=== PATIENT | male | born 1975 ===

== ENCOUNTER 2016-07-31 18:45 | Observation (INO) | payer SELFPAY ==
--- NOTE | 2016-07-31 19:22 | ED PDOC ---
HPI: Chest Pain Time Seen by Provider: 07/31/16 19:13 Chief Complaint (Nursing): Chest Pain Chief Complaint (Provider): Chest Pain History Per: Patient History/Exam Limitations: no limitations Onset/Duration Of Symptoms: Hrs (x5), Intermittent Episodes Current Symptoms Are (Timing): Still Present Severity: Moderate Quality: Tightness Associated Symptoms: denies: Other (no cough) Additional Complaint(s): Servando Lawrence is a 41 year old male, with a past medical history inclusive of hypercholesterolemia, who presents to the ED on 07/31/16, accompanied by his daughter, for the evaluation of intermittent episodes of moderate, left-sided chest pain that he has experienced x5 hours; onset of which was as he was putting a nail into a floor at work. Pain, described as a tightness, is present in the ED and has been reportedly felt before with prior cases of pneumonia, though patient denies fever, chills, cough, shortness of breath, leg pain or swelling. Of note, patient's daughter reports that he has been experiencing chest pain more often of late (monthly), but that he has not gone for medical evaluation secondary to his lack of insurance. Pain today is described as similar to previous. Last visit to a doctor was as of 2 years ago. PMD: none Past Medical History Reviewed: Historical Data, Nursing Documentation, Vital Signs Vital Signs: Last Vital Signs Temp 97.9 F 08/01/16 12:31 Pulse 81 08/01/16 12:31 Resp 18 08/01/16 12:31 BP 109/69 08/01/16 12:31 Pulse Ox 95 08/01/16 12:31 - Medical History PMH: Hypercholesterolemia - Surgical History Surgical History: No Surg Hx - Family History Family History: States: Hypertension, Other (hypercholesterolemia (mother)) - Living Arrangements Living Arrangements: With Family - Social History Current smoker - smoking cessation education provided: No Alcohol: None Drugs: Denies - Immunization History Hx Tetanus Toxoid Vaccination: No Hx Influenza Vaccination: No Hx Pneumococcal Vaccination: No - Home Medications Home Medications: Ambulatory Orders Medication Instructions Recorded Aspirin [Adult Low Dose Aspirin EC] 81 mg PO DAILY #1 tablet. 08/01/16 - Allergies Allergies/Adverse Reactions: Allergies Allergy/AdvReac Type Severity Reaction Status Date / Time No Known Allergies Allergy Verified 07/31/16 18:54 Review of Systems Constitutional: Negative for: Fever, Chills Cardiovascular: Positive for: Chest Pain (left-sided, intermittent tightness). Negative for: Edema Respiratory: Negative for: Cough, Shortness of Breath Musculoskeletal: Negative for: Leg Pain Neurological: Positive for: Headache, Dizziness (occasional, none in ED) Physical Exam - Reviewed Nursing Documentation Reviewed: Yes Vital Signs Reviewed: Yes - Physical Exam Appears: Positive for: Non-toxic, In Acute Distress (mild painful distress) Head Exam: Positive for: ATRAUMATIC, NORMOCEPHALIC Skin: Positive for: Normal Color, Warm, Dry Eye Exam: Positive for: Normal appearance, PERRL Neck: Positive for: Normal, Painless ROM, Supple Cardiovascular/Chest: Positive for: Regular Rate, Rhythm, Murmur. Negative for : Edema Respiratory: Positive for: Normal Breath Sounds. Negative for: Respiratory Distress Gastrointestinal/Abdominal: Positive for: Soft, Other (obese). Negative for: Tenderness Back: Positive for: Normal Inspection Neurologic/Psych: Positive for: Alert, Oriented - Laboratory Results Result Diagrams: 07/31/16 19:30 07/31/16 19:30 - ECG O2 Sat by Pulse Oximetry: 98 (RA) Pulse Ox Interpretation: Normal Medical Decision Making Medical Decision Makin:13 Initial Impression: chest pain Differential diagnoses include ACS, costochondritis, pneumonia, CHF, pulmonary embolism Pt will need hospitalization for serial enzymes r/o ACS, pending ER workup. Initial Plan: * EKG * CXR * Labs * Troponin I * BNP * Magnesium * Phosphorus * TSH * D-Dimer * Glucose/Blood/POC * Udip * Urine Drug Screen * Reevaluation Scribe Attestation: Documented by Adilia Patricia, acting as a scribe for Mely Lomas MD. Provider Scribe Attestation: All medical record entries made by the Scribe were at my direction and personally dictated by me. I have reviewed the chart and agree that the record accurately reflects my personal performance of the history, physical exam, medical decision making, and the department course for this patient. I have also personally directed, reviewed, and agree with the discharge instructions and disposition. Disposition - Clinical Impression Clinical Impression: Chest pain Counseled Patient/Family Regarding: Studies Performed, Diagnosis - Disposition Disposition Time: 19:30 Condition: SERIOUS - Pt Status Changed To: Hospital Disposition Of: Observation - POA Present On Arrival: None
[2016-07-31 19:41] LABS: BASO # 0.1 K/uL (0.0-0.2); BASO % 0.5 % (0.0-2.0); EOS # 0.3 K/uL (0.0-0.7); EOS % 2.9 % (0.0-4.0); HEMATOCRIT 41.8 % (35.0-51.0); LYMPH # 3.4 K/uL (1.0-4.3); LYMPH % 35.1 % (20.0-40.0); MEAN CELL VOLUME 86.4 fl (80.0-94.0); MEAN CORPUSCULAR HEMOGLOBIN 29.2 pg (27.0-31.0); MEAN CORPUSCULAR HGB CONC 33.8 g/dL (33.0-37.0); MEAN PLATELET VOLUME 7.9 fl (7.2-11.7); MONO # 0.8 K/uL (0.0-0.8); MONO % 8.7 % (0.0-10.0); NEUT % 52.8 % (50.0-75.0); NRBC % 0.1 % (0.0-0.0); RED CELL DISTRIBUTION WIDTH 12.8 % (11.5-14.5); WHITE BLOOD COUNT 9.6 K/uL (4.8-10.8)
[2016-07-31 20:14] LABS: ALB/GLOB RATIO 1.2 (1.0-2.1); ALKALINE PHOSPHATASE 84 U/L (38-126); ALT/SGPT 79 U/L (21-72); AST/SGOT 39 U/L (17-59); BILIRUBIN,TOTAL 0.6 mg/dl (0.2-1.3); BLOOD UREA NITROGEN 17 mg/dl (9-20); CALCIUM 8.9 mg/dL (8.4-10.2); CARBON DIOXIDE 26 mmol/L (22-30); CHLORIDE 102 mmol/L (98-107); GFR AFRICAN-AMERICAN > 60; GLUCOSE,RANDOM 139 mg/dL (75-110); MAGNESIUM 2.1 MG/DL (1.6-2.3); PHOSPHOROUS 3.6 mg/dl (2.5-4.5); POTASSIUM 3.7 MMOL/L (3.6-5.0); SODIUM 137 mmol/l (132-148); TOTAL PROTEIN 7.9 G/DL (6.3-8.2)
[2016-07-31 20:44] LABS: THYROID STIMULATING HORMONE 2.27 mIU/ML (0.46-4.68)
--- NOTE | 2016-07-31 22:00 | RAD ---
EXAM: XR Chest, 2 Views. CLINICAL HISTORY: 41 years old, male; Pain; Chest pain; Type not specified TECHNIQUE: Frontal and lateral views of the chest. COMPARISON: No relevant prior studies available. FINDINGS: Limitations: Radiographic technique - mild. Lungs: [id number] underinflation. Subsegmental atelectasis. No consolidation. Pleural space: No definite pleural effusion. No pneumothorax. Heart: Borderline cardiomegaly. Mediastinum: Mild prominence of central pulmonary vasculature. Bones/joints: No acute fracture. IMPRESSION: 1. Vascular crowding vs early pulmonary vascular congestion. Correlate clinically. 2. Incidental/non-acute findings are described above.
--- NOTE | 2016-07-31 22:18 | CP.PCM.HP ---
History of Present Illness - History of Present Illness History of Present Illness: CC: CP HPI: This is a 41 y/o male with no MHx possibly of hyperlipidemia who comes in c /o CP. He states that CP is L sided, intermittent, and has been occurring since earlier today. The pain does not radiate, and it is not accompanied by SOB. Patient has never had pain like this before. States that normally he is fairly active, and has not noted any problems. Denies cough/f/c/n/v/d. Per his daughter, he may have been having the CP for a longer period of time, but has not been to a doctor because of not having insurance. PMD: none ROS: 14 systems reviewed, negative other than HPI MHx: Possibly HLD SHx: No surgeries Allergies: NKDA Medications: None Family Hx: Possibly mother has had CVA Social Hx: Lives with family, no EtOH, 1 cig daily Present on Admission - Present on Admission Any Indicators Present on Admission: No Past Patient History - Past Social History Alcohol: None Drugs: Denies - CARDIAC Hx Hypercholesterolemia: Yes - PSYCHIATRIC Hx Substance Use: No - ANESTHESIA Hx Anesthesia: No Meds Allergies/Adverse Reactions: Allergies Allergy/AdvReac Type Severity Reaction Status Date / Time No Known Allergies Allergy Verified 07/31/16 18:54 Results - Vital Signs Recent Vital Signs: Last Vital Signs Temp 97.2 F L 07/31/16 18:54 Pulse 92 H 07/31/16 19:26 Resp 16 07/31/16 19:26 BP 118/64 07/31/16 19:26 Pulse Ox 98 07/31/16 20:14 - Labs Result Diagrams: 07/31/16 19:30 07/31/16 19:30 - EKG Data EKG Interpreted by: Myself EKG shows normal: Sinus rhythm Rate: Normal - EKG Data EKG comments: IVCD with RBBB pattern - Imaging and Cardiology Chest x-ray Status: Image reviewed by me, Report reviewed by me (b/l interstitial ? opacities vs. soft tissue ) Assessment & Plan (1) Chest pain Assessment and Plan: 41 y/o male with ?hyperlipidemia and elevated ?ser gluc who presents with chest pain. -Admit tele obs -Serial trops -AM troponin -AM lipids -AM A1C -ASA and SLNG PRN -DVT PPx with SC Lovenox Status: Acute (2) DVT prophylaxis Status: Acute
[2016-08-01 03:57] LABS: CHOLESTEROL 161 mg/dL (0-199)
[2016-08-01] MEDS ORDERED: Influenza Vaccine(5yr & older) 0.5 ML/45 MCG IM ONE (09:00)
[2016-08-01] MEDS ORDERED: Enoxaparin 40 mg Syringe SC SCH (09:00)
[2016-08-01] MEDS ORDERED: Pneumococcal 23-Valent Vaccine IM ONE (09:00)
[2016-08-01 12:32] VITALS: BP 109/69; PULSE 81; RESP 18; TEMP 97.9
--- NOTE | 2016-08-01 13:11 | CP.PCM.DIS ---
Provider - Provider Date of Admission: 07/31/16 21:55 Attending physician: Saige Galvin MD Time Spent in preparation of Discharge (in minutes): 25 Diagnosis - Discharge Diagnosis (1) Chest pain Status: Acute (2) DVT prophylaxis Status: Acute Hospital Course - Lab Results Lab Results: Most Recent Lab Values WBC 9.6 K/uL (4.8-10.8) 07/31/16 19:30 RBC 4.83 Mil/uL (4.40-5.90) 07/31/16 19:30 Hgb 14.1 g/dL (12.0-18.0) 07/31/16 19:30 Hct 41.8 % (35.0-51.0) 07/31/16 19:30 MCV 86.4 fl (80.0-94.0) 07/31/16 19:30 MCH 29.2 pg (27.0-31.0) 07/31/16 19:30 MCHC 33.8 g/dL (33.0-37.0) 07/31/16 19:30 RDW 12.8 % (11.5-14.5) 07/31/16 19:30 Plt Count 316 K/uL (130-400) 07/31/16 19:30 MPV 7.9 fl (7.2-11.7) 07/31/16 19:30 Neut % (Auto) 52.8 % (50.0-75.0) 07/31/16 19:30 Lymph % (Auto) 35.1 % (20.0-40.0) 07/31/16:30 Rankin % (Auto) 8.7 % (0.0-10.0) 07/31/16 19:30 Eos % (Auto) 2.9 % (0.0-4.0) 07/31/16 19:30 Baso % (Auto) 0.5 % (0.0-2.0) 07/31/16 19:30 Neut # 5.0 K/uL (1.8-7.0) 07/31/16 19:30 Lymph # 3.4 K/uL (1.0-4.3) 07/31/16 19:30 Rankin # 0.8 K/uL (0.0-0.8) 07/31/16 19:30 Eos # 0.3 K/uL (0.0-0.7) 07/31/16 19:30 Baso # 0.1 K/uL (0.0-0.2) 07/31/16 19:30 D-Dimer, Quantitative < 0.19 mg/L FEU (0-0.50) 07/31/16 19:30 Sodium 137 mmol/l (132-148) 07/31/16 19:30 Potassium 3.7 MMOL/L (3.6-5.0) 07/31/16 19:30 Chloride 102 mmol/L (98-107) 07/31/16 19:30 Carbon Dioxide 26 mmol/L (22-30) 07/31/16 19:30 Anion Gap 13 (10-20) 07/31/16 19:30 BUN 17 mg/dl (9-20) 07/31/16 19:30 Creatinine 0.6 mg/dL (0.8-1.5) L 07/31/16 19:30 Est GFR ( Amer) > 60 07/31/16 19:30 Est GFR (Non-Af Amer) > 60 07/31/16 19:30 POC Glucose (mg/dL) 101 mg/dL (65-110) 07/31/16 19:50 Random Glucose 139 mg/dL (75-110) H 07/31/16 19:30 Calcium 8.9 mg/dL (8.4-10.2) 07/31/16 19:30 Phosphorus 3.6 mg/dl (2.5-4.5) 07/31/16 19:30 Magnesium 2.1 MG/DL (1.6-2.3) 07/31/16 19:30 Total Bilirubin 0.6 mg/dl (0.2-1.3) 07/31/16 19:30 AST 39 U/L (17-59) 07/31/16 19:30 ALT 79 U/L (21-72) H 07/31/16 19:30 Alkaline Phosphatase 84 U/L (38-126) 07/31/16 19:30 Troponin I < 0.0120 ng/mL (0.00-0.120) 08/01/16 12:15 NT-Pro-B Natriuret Pep 15.4 pg/ml (0-450) 07/31/16 19:30 Total Protein 7.9 G/DL (6.3-8.2) 07/31/16 19:30 Albumin 4.3 g/dL (3.5-5.0) 07/31/16 19:30 Globulin 3.6 gm/dL (2.2-3.9) 07/31/16 19:30 Albumin/Globulin Ratio 1.2 (1.0-2.1) 07/31/16 19:30 Triglycerides 99 mg/DL (0-149) 08/01/16 03:30 Cholesterol 161 mg/dL (0-199) 08/01/16 03:30 LDL Cholesterol Direct 120 mg/dL (0-129) 08/01/16 03:30 HDL Cholesterol 29 MG/DL (30-70) L 08/01/16 03:30 TSH 3rd Generation 2.27 mIU/ML (0.46-4.68) 07/31/16 19:30 Urine Opiates Screen Negative (NEGATIVE) 07/31/16 22:19 Urine Methadone Screen Negative (NEGATIVE) 07/31/16 22:19 Ur Barbiturates Screen Negative (NEGATIVE) 07/31/16 22:19 Ur Phencyclidine Scrn Negative (NEGATIVE) 07/31/16 22:19 Ur Amphetamines Screen Negative (NEGATIVE) 07/31/16 22:19 U Benzodiazepines Scrn Negative (NEGATIVE) 07/31/16 22:19 U Oth Cocaine Metabols Negative (NEGATIVE) 07/31/16 22:19 U Cannabinoids Screen Negative (NEGATIVE) 07/31/16 22:19 - Hospital Course Hospital Course: 41 y/o gent , no significant PMH came in bec of chest pain. Patient was observed in Telemetry. EKG normal . He was started on Aspirin and statin. Troponin x 3 negative. No abn rhythm on Tele monitoring. ACS ruled out. Further cardiac work up as outpt. Discharge Exam - Head Exam Head Exam: ATRAUMATIC, NORMAL INSPECTION, NORMOCEPHALIC - Eye Exam Eye Exam: EOMI, Normal appearance, PERRL Pupil Exam: NORMAL ACCOMODATION - ENT Exam ENT Exam: Mucous Membranes Moist, Normal External Ear Exam - Neck Exam Neck exam: Full Rom - Respiratory Exam Respiratory Exam: NORMAL BREATHING PATTERN. absent: Rales, Wheezes, Respiratory Distress - Cardiovascular Exam Cardiovascular Exam: REGULAR RHYTHM, +S1, +S2 - GI/Abdominal Exam GI & Abdominal Exam: Normal Bowel Sounds, Soft. absent: Tenderness - Extremities Exam Extremities exam: full ROM, normal capillary refill, pedal pulses present - Back Exam Back exam: FULL ROM, NORMAL INSPECTION. absent: CVA tenderness (L), CVA tenderness (R), paraspinal tenderness - Neurological Exam Neurological exam: Alert, CN II-XII Intact, Normal Gait, Oriented x3, Reflexes Normal - Psychiatric Exam Psychiatric exam: Normal Affect, Normal Mood - Skin Skin Exam: Dry, Intact, Normal Color, Warm Discharge Plan - Discharge Medications Prescriptions: Aspirin [Adult Low Dose Aspirin EC] 81 mg PO DAILY #1 tablet.dr - Follow Up Plan Condition: GOOD Disposition: HOME/ ROUTINE Instructions: Chest Pain (DC) Additional Instructions: appt CF in 1 wk Further cardiac work up as outpt Referrals: [facility] [place] [Outside]
--- NOTE | 2016-08-03 09:46 | CARD ---
APPROVED REPORT EKG Measurement Heart [id number] <Conclusion> Normal sinus rhythm Normal ECG
--- NOTE | 2016-08-03 10:04 | CARD ---
APPROVED REPORT EKG Measurement Heart [id number] <Conclusion> Normal sinus rhythm Incomplete right bundle branch block Borderline ECG
[2016-08-04 15:46] VITALS: O2SAT 98
== END 2016-08-01 15:14 | disposition home or self-care (01) ==
LOC: H.ER 18:45 → H.ERHOLD 21:55 → H.TEL 08-01
PROVIDERS: ADMIT Internal Medicine; ATTEND Internal Medicine
DX: R07.9 Chest pain, unspecified (principal); E78.00 Pure hypercholesterolemia, unspecified; Z23 Encounter for immunization
CPT/HCPCS: 36415; 71020; 80053; 80061; 82948; 83036; 83735; 83880; 84100; 84443; 84484; 85025; 85378; 90732; 93005; 99285; G0008; G0009; G0378; G0480; J1650; Q2035

== ENCOUNTER 2017-10-28 09:42 | Emergency (ER) | payer OTHER ==
[2017-10-28 09:44] VITALS: BMI 37.9
[2017-10-28 09:47] VITALS: BP 113/68; PULSE 86; RESP 16; TEMP 98.5; O2SAT 96
--- NOTE | 2017-10-28 10:33 | ED PDOC ---
Upper Extremity Pain/Injury Time Seen by Provider: 10/28/17 10:10 Chief Complaint (Nursing): Upper Extremity Problem/Injury Chief Complaint (Provider): right hand and wrist pain History Per: [employer] (patient's adult daughter is translating for patient in [place]) Additional Complaint(s): 42-year-old right-hand dominant male presents with pain and swelling to right hand and wrist status post crush injury sustained this past Wednesday at work. Patient states a large metal pipe fell on top of his hand. 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 Patient has not taken any medicine for pain relief and denies any numbness or tingling to affected area. He does complain of throbbing pain that he rates as a 7 out of 10. PMD: none Past Medical History Reviewed: Historical Data, Nursing Documentation, Vital Signs Vital Signs: Last Vital Signs Temp 98.5 F 10/28/17 09:44 Pulse 86 10/28/17 09:44 Resp 16 10/28/17 09:44 BP 113/68 10/28/17 09:44 Pulse Ox 96 10/28/17 09:44 - Medical History PMH: No Chronic Diseases - Surgical History Surgical History: No Surg Hx - Family History Family History: States: Hypertension - Living Arrangements Living Arrangements: With Family - Social History Current smoker - smoking cessation education provided: Yes (3 cigarettes per day ) Alcohol: Occasional Drugs: Denies - Immunization History Hx Pneumococcal Vaccination: No - Home Medications Home Medications: Ambulatory Orders Medication Instructions Recorded Aspirin [Adult Low Dose Aspirin EC] 81 mg PO DAILY #1 tablet. 08/01/16 Ibuprofen [Motrin Tab] 800 mg PO Q8 PRN #20 tab 10/28/17 - Allergies Allergies/Adverse Reactions: Allergies Allergy/AdvReac Type Severity Reaction Status Date / Time No Known Allergies Allergy Verified 07/31/16 18:54 Review of Systems ROS Statement: Except As Marked, All Systems Reviewed And Found Negative Musculoskeletal: Positive for: Other (right hand and wrist injury 4 days ago at work) Physical Exam - Reviewed Nursing Documentation Reviewed: Yes Vital Signs Reviewed: Yes - Physical Exam Appears: Positive for: Well, Non-toxic, No Acute Distress Skin: Positive for: Normal Color. Negative for: Rash Eye Exam: Positive for: Normal appearance Neck: Positive for: Normal Extremity: Positive for: Other (Diffuse swelling and tenderness noted to right hand and wrist with full range of motion of the wrist and all digits of right hand, normal distal sensation, normal capillary refill, no obvious bony deformities noted) Neurologic/Psych: Positive for: Alert, Oriented - ECG O2 Sat by Pulse Oximetry: 96 Pulse Ox Interpretation: Normal - Other Rad right hand and wrist x-ray X-Ray: Interpreted by Me, Viewed By Me X-Ray Interpretation: no fx, no dis Medical Decision Making Medical Decision Makin42 y/o with right hand and wrist pain Plan: PO motrin X-ray right wrist and hand Patient aware of x-ray results. All questions answered. Splint was applied, Motrin prescription provided. Patient was referred to clinic for follow up. Procedures - Splinting Location: right hand Pre-Made Type: metal (pre-made metacarpal splint secured with rosas wrap) Pre-Proc Neuro Vasc Exam: normal Post-Proc Neuro Vasc Exam: normal Disposition - Clinical Impression Clinical Impression: Hand contusion - Patient ED Disposition Is Patient to be Admitted: No Counseled Patient/Family Regarding: Studies Performed, Diagnosis, Need For Followup, Rx Given - Disposition Referrals: [facility] [Outside] Disposition: Routine/Home Disposition Time: 11:16 Condition: STABLE Additional Instructions: Ice, rest and elevate affected area. Take rx meds as directed as needed for pain. Follow up with clinic in 2-3 days. Prescriptions: Ibuprofen [Motrin Tab] 800 mg PO Q8 PRN #20 tab PRN Reason: Pain, Moderate (4-7) Instructions: Contusion (DC), Hand Pain (DC) Forms: [employer] ([place]er), [facility] ED School/Work Excuse Print Language: MALAYSIAN
--- NOTE | 2017-10-28 13:11 | RAD ---
PROCEDURE: Right Hand Radiographs. HISTORY: Trauma COMPARISON: None. FINDINGS: BONES: Bone alignment and mineralization are normal. There is no acute displaced fracture or bone destruction. JOINTS: Normal. No osteoarthritic changes. SOFT TISSUES: Normal. OTHER FINDINGS: None. IMPRESSION: No acute displaced fracture or dislocation.
--- NOTE | 2017-10-28 13:12 | RAD ---
PROCEDURE: Right Wrist Radiographs. HISTORY: Trauma COMPARISON: None. FINDINGS: BONES: Bone alignment and mineralization are normal. There is no acute displaced fracture or bone destruction. JOINTS: Normal. No dislocation. SOFT TISSUES: Normal. OTHER FINDINGS: None. IMPRESSION: No acute fracture or dislocation.
== END 2017-10-28 11:46 | disposition home or self-care (01) ==
LOC: H.ER 09:42
DX: S60.221A Contusion of right hand, initial encounter (principal); W22.8XXA Striking against or struck by other objects, initial encounter; Y92.89 Other specified places as the place of occurrence of the external cause; Z79.82 Long term (current) use of aspirin